=== PATIENT | male | born 1995 | race Caucasian/White ===

== ENCOUNTER 2016-10-23 11:33 | Inpatient (IN) | payer OTHER ==
[~2016-10-23] VITALS: Ht 170 cm; Wt 125.0 kg
[2016-10-23 13:05] LABS: BASOPHIL 0.2 % (0-2); EOSINOPHIL 5.5 % (0-5); HCT 47.2 % (42.0-52.0); LYMPHOCYTE 11.1 % (15-48); MCH 28.6 pg (25.0-31.0); MCV 79.5 fL (78.0-100.0); MONOCYTE 9.9 % (0-12); MPV 9.7 fL (6.0-9.5); NEUTROPHIL 73.3 % (41-80); PLT 376 K/uL (150-400); RBC 5.94 M/uL (4.70-6.00); RDW 12.8 % (11.5-14.0); WBC 13.4 K/uL (4.0-10.5)
[2016-10-23 13:28] LABS: ALBUMIN 4.6 g/dL (3.5-5.0); BILIRUBIN - TOTAL 0.6 mg/dL (0.1-1.0); GLOBULIN (CALCULATION) 4.3 g/dL (2.2-4.2); POTASSIUM 4.5 mmol/L (3.5-5.1); TOTAL PROTEIN 8.9 g/dL (6.4-8.3)
[2016-10-23 13:31] LABS: CREATININE 7.1 mg/dL (0.7-1.2)
[2016-10-23 13:39] LABS: LACTIC ACID 1.2 mmol/L (0.5-2.2)
[2016-10-23 18:13] LABS: BILIRUBIN 1+ mg/dL (NEGATIVE); BLOOD 3+ Ery/uL (NEGATIVE); CLARITY CLEAR (CLEAR); COLOR YELLOW (YELLOW); GLUCOSE (U) NORMAL (NORMAL); KETONE (U) TRACE mg/dL (NEGATIVE); LEUKOCYTES NEGATIVE Leu/uL (NEGATIVE); NITRITE NEGATIVE (NEGATIVE); PROTEIN 1+ mg/dL (NEGATIVE); SPECIFIC GRAVITY >=1.030 (1.001-1.030); UROBILINOGEN 0.2 mg/dL (0.2-1.0)
[2016-10-23 18:24] LABS: URINE CHLORIDE 32.9 mmol/L; URINE CREATININE 230.5 mg/dL (40-278); URINE TOTAL PROTEIN-RANDOM > 200 mg/dL
[2016-10-24 06:58] LABS: HCT 38.5 % (42.0-52.0); HGB 13.3 g/dl (13.2-18.0); MCH 28.5 pg (25.0-31.0); MCHC 34.5 g/dL (32.0-36.0); MCV 82.6 fL (78.0-100.0); MPV 9.6 fL (6.0-9.5); RBC 4.66 M/uL (4.70-6.00); RDW 12.5 % (11.5-14.0); WBC 9.1 K/uL (4.0-10.5)
[2016-10-24 07:31] LABS: ALBUMIN 3.5 g/dL (3.5-5.0); BILIRUBIN - TOTAL 0.6 mg/dL (0.1-1.0); CREATININE 4.5 mg/dL (0.7-1.2); GLOBULIN (CALCULATION) 3.1 g/dL (2.2-4.2); POTASSIUM 4.2 mmol/L (3.5-5.1); TOTAL PROTEIN 6.6 g/dL (6.4-8.3)
[2016-10-25 05:45] LABS: BASOPHIL 0.3 % (0-2); EOSINOPHIL 24.6 % (0-5); HCT 36.8 % (42.0-52.0); HGB 12.6 g/dl (13.2-18.0); LYMPHOCYTE 29.6 % (15-48); MCH 28.4 pg (25.0-31.0); MCHC 34.2 g/dL (32.0-36.0); MCV 83.1 fL (78.0-100.0); MPV 9.8 fL (6.0-9.5); NEUTROPHIL 35.5 % (41-80); PLT 251 K/uL (150-400); RBC 4.43 M/uL (4.70-6.00); RDW 12.4 % (11.5-14.0)
[2016-10-25 06:21] LABS: WBC 7.7 K/uL (4.0-10.5)
[2016-10-25 06:23] LABS: ALBUMIN 3.5 g/dL (3.5-5.0); BILIRUBIN - TOTAL 0.5 mg/dL (0.1-1.0); CREATININE 2.4 mg/dL (0.7-1.2); MAGNESIUM 1.96 mg/dL (1.40-2.10); PHOSPHORUS 3.5 mg/dL (2.7-4.5); POTASSIUM 4.2 mmol/L (3.5-5.1); TOTAL PROTEIN 6.5 g/dL (6.4-8.3)
[2016-10-26 06:03] LABS: BASOPHIL 0.3 % (0-2); EOSINOPHIL 24.9 % (0-5); HCT 36.6 % (42.0-52.0); HGB 12.5 g/dl (13.2-18.0); MCH 28.6 pg (25.0-31.0); MCHC 34.2 g/dL (32.0-36.0); MCV 83.8 fL (78.0-100.0); MONOCYTE 8.5 % (0-12); MPV 9.7 fL (6.0-9.5); NEUTROPHIL 34.3 % (41-80); PLT 252 K/uL (150-400); RBC 4.37 M/uL (4.70-6.00); RDW 12.4 % (11.5-14.0)
[2016-10-26 06:04] LABS: WBC 6.4 K/uL (4.0-10.5)
[2016-10-26 06:18] LABS: ALBUMIN 3.5 g/dL (3.5-5.0); BILIRUBIN - TOTAL 0.4 mg/dL (0.1-1.0); CREATININE 1.6 mg/dL (0.7-1.2); GLOBULIN (CALCULATION) 2.6 g/dL (2.2-4.2); POTASSIUM 4.4 mmol/L (3.5-5.1); TOTAL PROTEIN 6.1 g/dL (6.4-8.3)
[2016-10-27 06:46] LABS: CREATININE 1.3 mg/dL (0.7-1.2); POTASSIUM 4.7 mmol/L (3.5-5.1)
[2016-10-27] MEDS ORDERED: NORCO 5-325 TA1 EACH PO (14:18)
[2016-10-27] MEDS ORDERED: PRAVACHOL40 MG PO (14:21)
[2016-10-27] MEDS ORDERED: PROTONIX 40MG T40 MG PO (14:22)
[2016-10-27] MEDS ORDERED: CARAFATE1 GM PO (14:22)
== END 2016-10-27 14:04 | disposition home or self-care (01) | DRG 417 ==
LOC: FER 11:33 → EDSTATUS 11:34 → FMS 15:13 → FTCU 15:13 → FMS 10-25 11:45
PROVIDERS: Internal Medicine; Nurse Practitioner; Surgery; ADMIT Internal Medicine
PROC: 0FT44ZZ Resection of Gallbladder, Percutaneous Endoscopic Approach (ICD-10-PCS; principal; 2016-10-26 10:00)
DX: K81.0 Acute cholecystitis (principal); N17.0 Acute kidney failure with tubular necrosis; E87.1 Hypo-osmolality and hyponatremia; Z68.41 Body mass index [BMI] 40.0-44.9, adult; I10 Essential (primary) hypertension; F12.90 Cannabis use, unspecified, uncomplicated; E86.9 Volume depletion, unspecified; K29.70 Gastritis, unspecified, without bleeding; E83.52 Hypercalcemia; E66.01 Morbid (severe) obesity due to excess calories; Z87.442 Personal history of urinary calculi
CPT/HCPCS: 36415; 36600; 74300; 78227; 80048; 80053; 80074; 81003; 82436; 82570; 82803; 83605; 83735; 84100; 84156; 84300; 85025; 86038; 86160; 86200; 86225; 86431; 87040; 88304; 93005; A9537; C9113; J1100; J1170; J2270; J2405; J2704; J2805; J3010; Q9962